=== PATIENT | male | born 1965 | race Hispanic/Latino ===

== ENCOUNTER 2020-09-09 07:14 | Emergency (ER) | payer OTHER ==
[~2020-09-09] VITALS: Ht 175.3 cm; Wt 83.9 kg
== END 2020-09-09 08:34 | disposition home or self-care (01) ==
LOC: ER 07:29
DX: L03.011 Cellulitis of right finger (principal); J44.9 Chronic obstructive pulmonary disease, unspecified; F17.210 Nicotine dependence, cigarettes, uncomplicated
CPT/HCPCS: 99283

== ENCOUNTER 2024-01-25 12:21 | Emergency (ER) | payer OTHER ==
[~2024-01-25] VITALS: Ht 175.3 cm; Wt 90.7 kg
[2024-01-25 12:26] VITALS: PULSE 83; RESP 18; TEMP 98; O2SAT 99
[2024-01-25] MEDS: HYDROCODONE/APAP 5MG-325MG TAB PO ONE (13:44)
[2024-01-25] MEDS ORDERED: AMOX TR-K CLV1 EAC2 PO (13:58)
[2024-01-25] MEDS ORDERED: DOXYCYCLINE HY100 MG PO (13:58)
[2024-01-25] MEDS ORDERED: TETANUS/DIPHTHERIA TOX ADULT 0.5 ML SYR ONE (14:14)
[2024-01-25] MEDS: DIPHTH,PERTUSS(ACELL),TET VAC 0.5 ML SYRINGE IM ONE (14:21)
== END 2024-01-25 14:55 | disposition home or self-care (01) ==
LOC: ER 12:30
DX: M79.644 Pain in right finger(s) (principal); I73.1 Thromboangiitis obliterans [Buerger's disease]; I10 Essential (primary) hypertension; J44.9 Chronic obstructive pulmonary disease, unspecified; F17.210 Nicotine dependence, cigarettes, uncomplicated
CPT/HCPCS: 90471; 90714; 99283

== ENCOUNTER 2024-03-01 17:14 | Emergency (ER) | payer OTHER ==
[~2024-03-01] VITALS: Ht 175.3 cm; Wt 90.7 kg
[~2024-03-01 17:14] MED LIST: AMOX TR-K CLV1 EAC2 PO; DOXYCYCLINE HY100 MG PO
[2024-03-01 18:02] VITALS: PULSE 82; RESP 16; TEMP 98.5
[2024-03-01] MEDS: LIDOCAINE HCL 1% LOCAL INJ 20 ML VIAL INJ ONE (18:22)
[2024-03-01] MEDS ORDERED: ULTRAM 50MG50 MG PO (18:36)
[2024-03-01] MEDS ORDERED: AMOX TR-K CLV1 EAC2 PO (18:36)
[2024-03-01 18:47] VITALS: BP 158/111; PULSE 75; RESP 16; O2SAT 99
== END 2024-03-01 18:46 | disposition home or self-care (01) ==
LOC: ER 17:55
DX: I73.1 Thromboangiitis obliterans [Buerger's disease] (principal); F45.8 Other somatoform disorders; I10 Essential (primary) hypertension; J44.9 Chronic obstructive pulmonary disease, unspecified; F17.210 Nicotine dependence, cigarettes, uncomplicated
CPT/HCPCS: 99283